=== PATIENT | male | born 1980 | race Hispanic/Latino ===

== ENCOUNTER 2022-07-08 09:40 | Emergency (ER) | payer OTHER ==
[~2022-07-08] VITALS: Ht 172.7 cm; Wt 139.5 kg
--- NOTE | 2022-07-09 17:36 | EKG ---
[facility] [address] [facility] [place], [place] [address] Signed Normal sinus rhythm Normal ECG No previous ECGs available Confirmed by ANITA MORALES MD ([id number] on 07/09/2022 5:36:00 PM Electronically Signed By: ANITA MORALES MD 07/09/22 1736 PATIENT NAME: MAYDA [facility] [place] Electrocardiogram DATE OF : 80 PHYSICIAN: ANITA MORALES MD REPORT #: [id number] REPORT IS CONFIDENTIAL AND NOT TO BE RELEASED WITHOUT AUTHORIZATION
== END 2022-07-08 13:24 | disposition home or self-care (01) ==
LOC: ED 09:40
DX: S86.911A Strain of unspecified muscle(s) and tendon(s) at lower leg level, right leg, initial encounter (principal); R07.89 Other chest pain; X58.XXXA Exposure to other specified factors, initial encounter
CPT/HCPCS: 36415; 71045; 80053; 83735; 84484; 85025; 85379; 93005; 93010; 99285-25; A9270